=== PATIENT | female | born 1970 | race Caucasian/White ===

== ENCOUNTER → 2017-02-14 | Outpatient (CLI) | payer OTHER ==
[~2017-02-14] MED LIST: ALBU90OI INH; BELPTAB PO; Cleocin HCl150 MG PO; DIAZ2 PO; DICL250 PO; DICLOXACILLIN PO; DOCU100 PO; DOXY100 PO; DULO30 PO; GABA300 PO; HYDACE5 PO; HYDGUAL120 PO; HYDR1TAB94 PO; HYOS.125 SL; LOPE2C PO; OMEP20ER IV; OXYC10ER PO; PRAM.125 PO; PRED20 PO; PROM25 PO; PSYL5.85P PO; TOPI25 PO; TRAM50 PO; TRAZ100 PO; Valium PO; Zofran4 MG PO
== END ==
LOC: LAB SHORT 19:06
DX: R21 Rash and other nonspecific skin eruption (principal); L81.4 Other melanin hyperpigmentation
CPT/HCPCS: 87070; 87205

== ENCOUNTER → 2020-05-19 | Outpatient (CLI) | payer OTHER | END | disposition home or self-care (01) | LOC: LAB SHORT 11:21 | DX: L02.411 Cutaneous abscess of right axilla (principal) | CPT/HCPCS: 87070; 87075; 87077; 87147; 87186; 87205 ==

== ENCOUNTER → 2020-09-15 | Outpatient (CLI) | payer OTHER ==
[2020-09-24 09:09] LABS: DOPAMINE, URINE 76 ug/L (Undefined)
[2020-09-24 12:10] LABS: METANEPHRINE, UR 32 ug/L (Undefined)
[2020-09-25 15:11] LABS: 5-HIAA, URINE 1.9 mg/L (Undefined); CREATININE, URINE 55.2 mg/dL (Not Estab.)
== END | disposition home or self-care (01) ==
LOC: LAB SHORT 07:00 → LAB 07:00 → LAB SHORT 13:10
PROVIDERS: Nurse Practitioner Family
DX: R61 Generalized hyperhidrosis (principal)
CPT/HCPCS: 81050; 82384; 82570; 83497; 83835

== ENCOUNTER → 2022-07-24 | Outpatient (CLI) | payer OTHER | END | disposition home or self-care (01) | LOC: LAB 10:37 → LAB SHORT 10:37 | DX: B37.2 Candidiasis of skin and nail (principal) | CPT/HCPCS: 83036 ==

== ENCOUNTER 2022-11-16 06:49 | Day surgery (SDC) | payer OTHER ==
[~2022-11-16] VITALS: Ht 162.6 cm; Wt 95.2 kg
[2022-11-16] MEDS ORDERED: ZANAFLEX413 PO (07:22)
[2022-11-16] MEDS ORDERED: AMITRIPTYLINE H25 MG PO (07:22)
[2022-11-16] MEDS ORDERED: DOCUZEN 8.6-501 EACH PO (07:23)
[2022-11-16] MEDS ORDERED: ESTRADIOL (TWI1 EAC3 TD (07:23)
[2022-11-16] MEDS ORDERED: FOLI1 PO (07:23)
[2022-11-16] MEDS ORDERED: HYDROCODONE-AC1 EAC7 PO (07:23)
[2022-11-16] MEDS ORDERED: TRAM50 (07:30)
--- NOTE | 2022-11-16 10:05 | NUR ---
11/16/22 1005 ELIAS DALTON PT LATL W PILLOW BETWEEN ARMS AND BETWEEN KNEES. CHAVEZ BAG UTILIZED FOR PROCEDURE W GELL PAD SUPPORTING ALL MIRIAM PROMINENCES.
--- NOTE | 2022-11-16 10:53 | NUR ---
11/16/22 1053 DYLAN MCCARTY PT USED BEDPAN TO VOID URINE
--- NOTE | 2022-11-16 11:49 | NUR ---
11/16/22 1149 DYLAN MCCARTY RADIOLOGY HERE TO TAKE AP OF RIGHT HIP PER DR WHITE ORDER
[2022-11-16 12:29] VITALS: BP 120/92
== END 2022-11-16 12:43 | disposition home or self-care (01) ==
LOC: ORSCSDS 06:49
PROVIDERS: Orthopaedic Surgery
PROC: 0QB20ZZ Excision of Right Pelvic Bone, Open Approach (ICD-10-PCS; principal; 2022-11-16 08:30)
PROC: 0MBL0ZZ Excision of Right Hip Bursa and Ligament, Open Approach (ICD-10-PCS; principal; 2022-11-16 08:30)
DX: M65.251 Calcific tendinitis, right thigh (principal); F41.8 Other specified anxiety disorders; E66.9 Obesity, unspecified; Z68.36 Body mass index [BMI] 36.0-36.9, adult; Z87.891 Personal history of nicotine dependence; Z79.899 Other long term (current) drug therapy
CPT/HCPCS: 73501; A9270; C1713; J0171; J0690; J1100; J1885; J2250; J2405; J2704; J2795; J3010; J7120

== ENCOUNTER → 2023-10-30 | Outpatient (CLI) | payer MEDICARE, OTHER ==
[~2023-10-30] MED LIST changes: +AMITRIPTYLINE H25 MG PO; +DOCUZEN 8.6-501 EACH PO; +ESTRADIOL (TWI1 EAC3 TD; +FOLI1 PO; +HYDROCODONE-AC1 EAC7 PO; +TRAM50; +ZANAFLEX413 PO
== END ==
LOC: LAB SHORT 16:02 → LAB 16:02
DX: R35.0 Frequency of micturition (principal); R73.09 Other abnormal glucose
CPT/HCPCS: 83036